=== PATIENT | female | born 1980 | race Two or more races ===

== ENCOUNTER → 2018-03-10 | Outpatient (CLI) | payer OTHER ==
[~2018-03-10] MED LIST: LEVO50TA5 PO
[2018-03-10 15:46] LABS: MICROSCOPIC NOT IND
[2018-03-10 15:53] LABS: BASOPHILS # (AUTO) 0.03 x10^3/uL (0-0.1); BASOPHILS % (AUTO) 1 % (0-1); CULTURE INDICATED? NO; EOSINOPHILS # (AUTO) 0.03 x10^3/uL (0-0.4); EOSINOPHILS % (AUTO) 1 % (1-7); LYMPHOCYTES # (AUTO) 1.47 x10^3/uL (1-3.4); LYMPHOCYTES % (AUTO) 30 % (22-44); MD NO; MEAN CORPUSCULAR HEMOGLOBIN 24.7 pg (27.0-34.8); MEAN CORPUSCULAR HGB CONC 32.4 g/dL (32.4-35.8); MEAN CORPUSCULAR VOLUME 76.1 fL (80-100); MEAN PLATELET VOLUME 9.8 fL (7.4-10.4); MONOCYTES # (AUTO) 0.32 x10^3/uL (0.2-0.8); MONOCYTES % (AUTO) 7 % (2-9); NEUTROPHILS # (AUTO) 3.07 x10^3/uL (1.8-6.8); NEUTROPHILS % (AUTO) 62 % (42-75); PLATELET COUNT 283 x10^3/uL (130-400); RED BLOOD COUNT 4.64 x10^6/uL (3.82-5.3); RED CELL DISTRIBUTION WIDTH 15.8 % (9.6-15.2)
== END ==
LOC: STAR 14:51
PROVIDERS: ATTEND Obstetrics & Gynecology
DX: D25.9 Leiomyoma of uterus, unspecified (principal); N92.0 Excessive and frequent menstruation with regular cycle; N94.6 Dysmenorrhea, unspecified
CPT/HCPCS: 36415; 81003; 85025

== ENCOUNTER 2018-03-17 05:26 | Day surgery (SDC) | payer OTHER ==
[~2018-03-17] VITALS: Ht 157.5 cm; Wt 67.5 kg
[2018-03-17 06:20] VITALS: BP 100/66
[2018-03-17] MEDS: LACTATED RINGERS 1,000 ML IV SCH (06:41)
[2018-03-17] MEDS: OxyconTIN ER 20 MG TAB.ER PO ONE (06:46)
[2018-03-17] MEDS: GABAPENTIN 300 MG CAPSULE PO ONE (06:46)
[2018-03-17] MEDS: ACETAMINOPHEN 500 MG TABLET PO ONE (06:46)
[2018-03-17] MEDS ORDERED: EPINEPHRINE 1 MG/ML, 1ML ONE (06:50)
[2018-03-17] MEDS ORDERED: FLUORESCEIN SODIUM 500 MG/5 ML ONE (06:50)
[2018-03-17] MEDS ORDERED: ROCURONIUM 10MG/ML,5ML ONE (07:05)
[2018-03-17] MEDS ORDERED: PROPOFOL 10 MG/ML, 20ML ONE (07:05)
[2018-03-17] MEDS ORDERED: MIDAZOLAM 1 MG/ML, 2ML ONE (07:05)
[2018-03-17] MEDS ORDERED: FENTANYL PF 250 MCG/5ML ONE (07:05)
[2018-03-17] MEDS ORDERED: DEXAMETHASONE 4 MG/ML, 1ML ONE (07:08)
[2018-03-17] MEDS ORDERED: CEFAZOLIN 1,000 MG ONE (07:38)
[2018-03-17] MEDS: BUPIVACAINE/PF 0.25% ONE (07:52)
[2018-03-17] MEDS ORDERED: ONDANSETRON 2MG/ML, 2ML ONE (08:19)
[2018-03-17] MEDS ORDERED: OXYcodone 5 MG/5 ML ORAL.SOL UDC PO PRN (08:30)
[2018-03-17] MEDS ORDERED: FENTANYL PF 100 MCG/2ML IV PRN (08:30)
[2018-03-17] MEDS ORDERED: MEPERIDINE/PF 25MG/0.5ML IVPush PRN (08:30)
[2018-03-17] MEDS ORDERED: ONDANSETRON ODT 8 MG PO PRN (08:30)
[2018-03-17] MEDS ORDERED: PROMETHAZINE 12.5 MG SUPP PR PRN (08:30)
[2018-03-17] MEDS ORDERED: MORPHINE SULFATE 4 MG/ML, 1ML IVPush PRN (08:30)
[2018-03-17] MEDS ORDERED: HYDROmorphone 1 MG/ML, 1ML IV PRN (08:30)
[2018-03-17 13:26] LABS: MEAN CORPUSCULAR HEMOGLOBIN 25.3 pg (27.0-34.8); MEAN CORPUSCULAR HGB CONC 33.2 g/dL (32.4-35.8); MEAN CORPUSCULAR VOLUME 76.3 fL (80-100); MEAN PLATELET VOLUME 9.7 fL (7.4-10.4); PLATELET COUNT 199 x10^3/uL (130-400); RED BLOOD COUNT 4.21 x10^6/uL (3.82-5.3); RED CELL DISTRIBUTION WIDTH 15.7 % (9.6-15.2)
[2018-03-17 13:43] LABS: MD YES
[2018-03-17 13:56] LABS: BANDS%(MANUAL) 11 % (0-7); LYMPHS% (MANUAL) 2 % (22-44); MONOS% (MANUAL) 3 % (2-9); SEGS% (MANUAL) 84 % (42-75)
[2018-03-17 13:57] LABS: <PLATELET ESTIMATE> ADEQUATE; <PLT MORPHOLOGY> NORMAL PLT MORPH; ANISOCYTOSIS 1+; MICROCYTOSIS 1+; OVALOCYTES 1+
== END 2018-03-17 15:05 ==
LOC: OUT 05:26
PROVIDERS: ATTEND Obstetrics & Gynecology
DX: D25.1 Intramural leiomyoma of uterus (principal); N92.0 Excessive and frequent menstruation with regular cycle; D64.9 Anemia, unspecified
CPT/HCPCS: 36415; 58552; 84703; 85025; 86850; 86900; 88307; J0171; J0690; J1100; J2250; J2405; J2704; J3010; J3490; J7120

== ENCOUNTER → 2019-03-09 | Outpatient (CLI) | payer OTHER | END | disposition home or self-care (01) | LOC: CFH 14:36 | PROVIDERS: ATTEND Obstetrics & Gynecology | DX: N63.20 Unspecified lump in the left breast, unspecified quadrant (principal) | CPT/HCPCS: 77065; G0279 ==